=== PATIENT | female | born 1995 | race Caucasian/White ===

== ENCOUNTER 2023-03-01 15:26 | Emergency (ER) | payer OTHER, SELFPAY ==
[2023-03-01 15:28] VITALS: BP 133/65; PULSE 54; RESP 19; TEMP 36.6; O2SAT 99; BMI 37.8
--- NOTE | 2023-03-01 15:30 | ED_ITS ---
HPI - General Adult General Chief complaint: Nausea/Vomiting/Diarrhea Stated complaint: ? food poisoning Time Seen by Provider: 03/01/23 18:57 Source: patient Mode of arrival: ambulatory Limitations: no limitations History of Present Illness HPI narrative: 27-year-old female presents with nausea, vomiting, diarrhea, cramping. Symptoms started yesterday. Patient had a half a burger couple days ago and she felt s lightly unwell. She had the other half the following day which was yesterday and since then she has had nausea, vomiting diarrhea. Everything has been nonbilious, nonbloody. She has had no fevers or chills. She has had multiple episodes of vomiting and diarrhea. She has abdominal cramping which is moderate nature. She has reduced appetite. There is no clear relieving or exacerbating features. She denies any sick contacts. Related Data Previous Rx's Medication Instructions Recorded cefuroxime axetil 250 mg tablet 250 mg PO BID 7 days #14 tabs 07/19/22 phenazopyridine 200 mg tablet 200 mg PO TID 6 doses #6 tabs 07/19/22 (Pyridium) ondansetron 4 mg disintegrating 4 mg PO Q8H PRN nausea and 03/01/23 tablet vomiting #10 tabs Allergies Allergy/AdvReac Type Severity Reaction Status Date / Time No Known Allergies Allergy Verified 03/01/23 15:27 [No Known Allergies*] Review of Systems Review of Systems: CONSTITUTIONAL: Denies weight loss, fever and chills. HEENT: Denies changes in vision and hearing. RESPIRATORY: Denies SOB and cough. CV: Denies palpitations no CP. GI: + abdominal pain, nausea, vomiting and diarrhea. : Denies dysuria and urinary frequency. MSK: Denies myalgia and joint pain. SKIN: Denies rash and pruritus. NEUROLOGICAL: Denies headache and syncope. PSYCHIATRIC: Denies recent changes in mood. Denies anxiety and depression. All other ROS are negative unless in HPI PMFSH Social History Social History Alcohol intake: never Smoked in Last 30 Days: No Use of substances other than those prescribed or required for medical reasons: No Advance Directives: No Advance Directives Information Provided: Yes Patient : No Physical Exam ED Vital Signs: Vital Signs - 24 hr 03/01/23 15:28 03/01/23 19:06 Temperature 98 F Pulse Rate 54 66 Respiratory Rate 19 18 Blood Pressure 133/65 136/64 Pulse Oximetry 99 97 Oxygen Delivery Method Room Air BMI result Body Mass Index 37.8 GEN: Well developed, no acute distress, alert, oriented HEENT: Normocephalic, atraumatic, normal external ears, nose appears normal, no oropharyngeal edema or exudates Eyes: Normal to appearance Neck: Supple, no lymphadenopathy Respiratory: Talks in complete sentences, no respiratory distress, clear to auscultation bilaterally Cardiovascular: Regular rate and rhythm, no murmurs rubs or gallops Abdomen: Soft, nontender, nondistended, no guarding, no rebound Back: No CVA tenderness Extremities: No clubbing cyanosis or edema Neurologic: No focal neurologic deficits, cranial nerves 2-12 intact, strength is 5/5 bilaterally Skin: No rash Course Course Course Narrative: RME- 27 year old female presents for evaluation abdominal pain, nausea, vomiting, diarrhea. She reports her symptoms started after ?a work [employer] republic[employer]. She reports that she had half a hamburger 2 days ago and started to feel upset stomach and nausea. She had the rest the hamburger yesterday and has had persistent nausea vomiting, diarrhea since. Plan for labs, UA, test, stool studies. Reevaluation(s) Reevaluation #1: Patient is feeling much better. She is tolerating oral intake. She will be discharged at this time Time: 20:10 Medications Administered Discontinued Medications Generic Name Dose Route Start Last Admin Trade Name Freq PRN Reason Stop Dose Admin Ondansetron HCl 4 mg 03/01/23 19:03 03/01/23 19:16 Ondansetron Odt 4 Mg Tab.Rapdis TRANSLINGU 03/01/23 19:04 4 mg ONCE ONE Administration Medical Decision Making Medical Decision Making [facility] Narrative: 27-year-old female presents with nausea vomiting, diarrhea and abdominal c ramping. Examination is benign. Differential diagnosis includes gastroenteritis, colitis, IBS, IBD, malabsorption, bacterial overgrowth, lactose intolerance. Plan will be to symptomatically treat the patient. Patient is not have any significant acute abdominal findings. There is no definite indication for imaging of the abdomen. Differential Diagnosis Differential Diagnoses: The differential diagnosis associated with the presentat ion includes (See above) Admission/Observation Consideration of admission/observation: Escalation of care including admission/observation considered Lab Data MDM Lab Attestation statement: I reviewed the patient's lab results. 03/01/23 15:36 03/01/23 15:36 Labs: Lab Results 03/01/23 03/01/23 03/01/23 Range/Units 15:36 15:36 19:09 WBC 20.4 H (4.8-10.8) X10*3/uL RBC 4.61 (4.20-5.50) X10*6/uL Hgb 14.5 (12.0-16.0) g/dl Hct 41.9 (37.0-47.0) % MCV 90.9 (80.0-98.0) fL MCH 31.5 (27.0-33.0) pg MCHC 34.6 (31.0-35.0) g/dl RDW 12.4 (11.0-16.0) % Plt Count 359 (160-400) X10*3/uL MPV 11.0 (9.4-12.3) fL Immature Gran % (Auto) 0.4 (0.0-0.4) % Neut % (Auto) 92.1 H (45-73) % Lymph % (Auto) 4.7 L (20-40) % Falls % (Auto) 2.7 (2-11) % Eos % (Auto) 0.0 (0-4) % Baso % (Auto) 0.1 (0-2) % Lymph # (Auto) 1.0 L (1.2-4.9) X10*3/uL [place] # (Auto) 0.5 (0.1-1.2) X10*3/uL Eos # (Auto) 0.0 (0.0-0.4) X10*3/uL Baso # (Auto) 0.0 (0.0-0.2) X10*3/uL Abs Immat Gran (auto) 0.09 H (0.00-0.03) X10*3/uL Absolute Neuts (auto) 18.8 H (2.0-8.3) x10*3/uL Absolute Nucleated RBC 0.000 (0.0-0.012) X10*3/uL Nucleated RBC % (auto) 0.0 (0.0-0.2) /100WBC Smear Tech's Comments VERIFIED Sodium 140 (135-145) mmol/L Potassium 3.7 (3.3-5.1) mmol/L Chloride 109 H (96-108) mmol/L Carbon Dioxide 19 L (22-29) mmol/L Anion Gap 16 (12-20) BUN 14 (9-16) mg/dL Creatinine 0.81 (0.5-1.4) mg/dL Estim Creat Clear Calc 126.3 Estimated GFR > 60 Random Glucose 151 H (60-115) mg/dL Calcium 10.7 H (8.4-10.2) mg/dL Total Bilirubin 0.8 (0.0-1.0) mg/dL AST 22 (5-31) U/L ALT 31 (0-31) U/L Alkaline Phosphatase 89 (39-117) U/L Total Protein 8.4 H (6.5-8.0) g/dL Albumin 5.2 H (3.5-5.0) g/dL Lipase 10 (8-78) U/L Urine Color Yellow Urine Appearance Turbid Urine pH 6.0 (5.0-9.0) Ur Specific [place] >= 1.030 H (1.005-1.025) Urine Protein 30 (1+) H (Neg-Trace) mg/dL Urine Glucose (UA) Negative (Negative) mg/dL Urine Ketones 15 (Negative) mg/dL Urine Blood Trace H (Negative) Urine Nitrite Negative (Negative) Ur Leukocyte Esterase Trace H (Negative) Urine RBC 6-10 H (0-2) /HPF Urine WBC 0-5 (0-5) /HPF Ur Squamous Epith Cells 3-5 (0-2) /HPF Urine Bacteria None Seen (None Seen) Hyaline Casts 0-2 (0-2) /LPF Urine Test (NEGATIVE) 03/01/23 Range/Units 19:09 WBC (4.8-10.8) X10*3/uL RBC (4.20-5.50) X10*6/uL Hgb (12.0-16.0) g/dl Hct (37.0-47.0) % MCV (80.0-98.0) fL MCH (27.0-33.0) pg MCHC (31.0-35.0) g/dl RDW (11.0-16.0) % Plt Count (160-400) X10*3/uL MPV (9.4-12.3) fL Immature Gran % (Auto) (0.0-0.4) % Neut % (Auto) (45-73) % Lymph % (Auto) (20-40) % Falls % (Auto) (2-11) % Eos % (Auto) (0-4) % Baso % (Auto) (0-2) % Lymph # (Auto) (1.2-4.9) X10*3/uL [place] # (Auto) (0.1-1.2) X10*3/uL Eos # (Auto) (0.0-0.4) X10*3/uL Baso # (Auto) (0.0-0.2) X10*3/uL Abs Immat Gran (auto) (0.00-0.03) X10*3/uL Absolute Neuts (auto) (2.0-8.3) x10*3/uL Absolute Nucleated RBC (0.0-0.012) X10*3/uL Nucleated RBC % (auto) (0.0-0.2) /100WBC Smear Tech's Comments Sodium (135-145) mmol/L Potassium (3.3-5.1) mmol/L Chloride (96-108) mmol/L Carbon Dioxide (22-29) mmol/L Anion Gap (12-20) BUN (9-16) mg/dL Creatinine (0.5-1.4) mg/dL Estim Creat Clear Calc Estimated GFR Random Glucose (60-115) mg/dL Calcium (8.4-10.2) mg/dL Total Bilirubin (0.0-1.0) mg/dL AST (5-31) U/L ALT (0-31) U/L Alkaline Phosphatase (39-117) U/L Total Protein (6.5-8.0) g/dL Albumin (3.5-5.0) g/dL Lipase (8-78) U/L Urine Color Urine Appearance Urine pH (5.0-9.0) Ur Specific [place] (1.005-1.025) Urine Protein (Neg-Trace) mg/dL Urine Glucose (UA) (Negative) mg/dL Urine Ketones (Negative) mg/dL Urine Blood (Negative) Urine Nitrite (Negative) Ur Leukocyte Esterase (Negative) Urine RBC (0-2) /HPF Urine WBC (0-5) /HPF Ur Squamous Epith Cells (0-2) /HPF Urine Bacteria (None Seen) Hyaline Casts (0-2) /LPF Urine Test NEGATIVE (NEGATIVE) Prescription Management I considered prescription management with: Pain Medication Discharge Plan Discharge Clinical Impression: Food poisoning, Gastroenteritis, Leukocytosis Patient Disposition: Home, Self-Care Instructions: Gastroenteritis (DC), Leukocytosis (ED), Food Poisoning (ED) Prescriptions: New ondansetron 4 mg tablet,disintegrating 4 mg PO Q8H PRN (Reason: nausea and vomiting) Qty: 10 0RF No Action cefuroxime axetil 250 mg tablet 250 mg PO BID 7 Days Qty: 14 0RF phenazopyridine [Pyridium] 200 mg tablet 200 mg PO TID 0 Days Qty: 6 0RF Referrals: Physician,None [Primary Care Provider] - (PMD as needed)
[2023-03-01 15:40] LABS: Basophils Percent Auto 0.1 % (0-2); Hematocrit 41.9 % (37.0-47.0); Hemoglobin 14.5 g/dl (12.0-16.0); Imm Gran Abs Auto 0.09 X10*3/uL (0.00-0.03); Imm Gran Pct Auto 0.4 % (0.0-0.4); Lymphocytes Percent Auto 4.7 % (20-40); MANUAL DIFF FLAG SCAN; Mean Corpuscular HGB Conc 34.6 g/dl (31.0-35.0); Mean Corpuscular Hemoglobin 31.5 pg (27.0-33.0); Mean Corpuscular Volume 90.9 fL (80.0-98.0); Monocytes Absolute Auto 0.5 X10*3/uL (0.1-1.2); Monocytes Percent Auto 2.7 % (2-11); Neutrophils Absolute Auto 18.8 x10*3/uL (2.0-8.3); Neutrophils Percent Auto 92.1 % (45-73); Platelet Count 359 X10*3/uL (160-400); Red Blood Count 4.61 X10*6/uL (4.20-5.50); Red Cell Distribution Width 12.4 % (11.0-16.0); SCAN SMEAR FLAG 1; White Blood Count 20.4 X10*3/uL (4.8-10.8)
[2023-03-01 16:00] LABS: Alanine Aminotransferase 31 U/L (0-31); Albumin Level 5.2 g/dL (3.5-5.0); Alkaline Phosphatase 89 U/L (39-117); Anion Gap 16 (12-20); Aspartate Amino Transferase 22 U/L (5-31); Bilirubin Total 0.8 mg/dL (0.0-1.0); Blood Urea Nitrogen 14 mg/dL (9-16); Calcium 10.7 mg/dL (8.4-10.2); Carbon Dioxide 19 mmol/L (22-29); Chloride 109 mmol/L (96-108); Creatinine Clr Calc Pharmacy 126.3; Estimated Glomerular Filt Rate > 60; Glucose Random 151 mg/dL (60-115); Lipase 10 U/L (8-78); Potassium 3.7 mmol/L (3.3-5.1); SLIDE REVIEW VERIFIED; Sodium 140 mmol/L (135-145); Total Protein 8.4 g/dL (6.5-8.0)
--- NOTE | 2023-03-01 19:01 | PC.NURSE ---
Pt is A&Ox3, Pt is reporting N/V/D since yesterday, reports 4/10 abdominal pain. Urine sample has been sent, pt unable to provide stool sample at this time.
[2023-03-01 19:06] VITALS: BP 136/64; PULSE 66; RESP 18; O2SAT 97
[2023-03-01] MEDS: Ondansetron ODT 4 MG TAB.RAPDIS TRANSLINGU (19:16)
[2023-03-01 19:18] LABS: Appearance Urine Turbid; Color Urine Yellow; Glucose Urine UA Negative (Negative); Leukocyte Esterase Urine Trace (Negative); Nitrite Urine Negative (Negative); Specific Gravity - Urine >= 1.030 (1.005-1.025); UMIC TRIGGER UACC YES; Urine Blood Trace (Negative); Urine Ketones 15 mg/dL (Negative); Urine Protein 30 (1+) mg/dL (Neg-Trace)
[2023-03-01 19:19] LABS: UPreg QC Valid YES; Urine Pregnancy NEGATIVE (NEGATIVE)
[2023-03-01 19:23] LABS: Bacteria Urine None Seen (None Seen); Hyaline Casts Urine 0-2 /LPF (0-2); WBC Urine 0-5 /HPF (0-5)
== END 2023-03-01 20:35 | disposition home or self-care (01) ==
PROVIDERS: Physician Assistant; Emergency Provider Emergency Medicine
DX: A05.9 Bacterial foodborne intoxication, unspecified (principal); K52.9 Noninfective gastroenteritis and colitis, unspecified; D72.829 Elevated white blood cell count, unspecified
CPT/HCPCS: 36415; 80053; 81001; 81025; 83690; 85025; 99283; 99284

== ENCOUNTER 2023-03-03 13:45 | Emergency (ER) | payer OTHER, SELFPAY ==
[2023-03-03 13:46] VITALS: BP 133/71; PULSE 66; RESP 16; TEMP 36.6; O2SAT 97; BMI 37.6
--- NOTE | 2023-03-03 14:19 | ED_ITS ---
HPI - General Adult General Chief complaint: Nausea/Vomiting/Diarrhea Stated complaint: nausea Time Seen by Provider: 03/03/23 14:16 Source: patient Mode of arrival: ambulatory Limitations: no limitations History of Present Illness HPI narrative: Patient is 27-year-old female presenting to the emergency department with chief complaint of nausea and vomiting. Patient developed symptoms on 02/28 after eating a hamburger. She was seen and evaluated here on 03/01/2023 and diagnosed with food poisoning. She was discharged home with Zoan and reports that her symptoms had slowly been improving, was able to tolerate some food and fluids yesterday. States today nausea and vomiting seem to be worse. Denies any blood or bile in emesis. She denies any abdominal pain. Denies any urinary symptoms. Denies fevers. Denies back or flank pain. MD complaint: nausea and vomiting Onset (ago): day(s) Exacerbating factors: eating Associated symptoms: denies other symptoms Treatments prior to arrival: other (Zofran) Related Data Previous Rx's Medication Instructions Recorded cefuroxime axetil 250 mg tablet 250 mg PO BID 7 days #14 tabs 07/19/22 phenazopyridine 200 mg tablet 200 mg PO TID 6 doses #6 tabs 07/19/22 (Pyridium) ondansetron 4 mg disintegrating 4 mg PO Q8H PRN nausea and 03/01/23 tablet vomiting #10 tabs metoclopramide HCl 10 mg tablet 10 mg PO Q6H PRN nausea and 03/03/23 vomiting #10 tabs Allergies Allergy/AdvReac Type Severity Reaction Status Date / Time No Known Allergies Allergy Verified 03/03/23 13:49 [No Known Allergies*] Review of Systems Review of Systems: As per HPI. Yes all other systems are reviewed and are negative Constitutional: Constitutional: Reports as per HPI [facility] Social History Social History Alcohol intake: never Advance Directives: No Advance Directives Information Provided: No Physical Exam ED Vital Signs: Vital Signs - 24 hr 03/03/23 13:46 Temperature 97.9 F Pulse Rate 66 Respiratory Rate 16 Blood Pressure 133/71 Pulse Oximetry 97 Oxygen Delivery Method Room Air BMI result Body Mass Index 37.6 Vital signs have been reviewed and appear to be correct. Blood pressure normal. Heart rate normal. Respiratory rate normal. Temperature normal. Oxygen saturation normal. Const General: cooperative, healthy appearing and no acute distress Orientation/consciousness: oriented to person, oriented to place, oriented to time and patient oriented x3 Limitations: no limitations HENMT Head: Yes normocephalic and Yes atraumatic Ears: external ears normal General nose exam: Normal external nose present Face and sinus: Yes face symmetric Mouth: oropharynx normal and moist mucous membranes Throat: Yes uvula midline Eyes Pupils: Equal, round and reactive pupils present Neck Neck: Yes normal visual inspection and Yes supple Resp Effort & Inspection: normal respiratory effort and able to speak in complete sentences Auscultation: clear to auscultation bilaterally Cardio Rate: regular rate Rhythm: regular rhythm Heart sounds: S1 normal heart sound present and S2 normal heart sound present GI Palpation (GI): Soft to palpation and nontender Auscultation: normoactive bowel sounds General: Yes no CVA tenderness Back/Spine/Pelvis Back: no CVA tenderness Skin General skin exam: elasticity normal and turgor normal Neuro General: oriented to person, oriented to place, oriented to time, patient oriented x3, moves all extremities, no focal motor deficits and CN's II-XI intact bilaterally Cranial nerves: Yes Equal, round and reactive pupils present Cognition (Neuro): normal cognition Extrem General: Yes full ROM, Yes no pedal edema and Yes no calf tenderness Psych Mental Status: mental status grossly normal Affect: normal affect Thought process: Normal thought process present Medications Administered Discontinued Medications Generic Name Dose Route Start Last Admin Trade Name Freq PRN Reason Stop Dose Admin Sodium Chloride 1,000 mls @ 999 mls/hr 03/03/23 14:30 03/03/23 16:17 Ns IV 03/03/23 15:30 Infused .Q1H1M ARNOLDO Infusion Metoclopramide HCl 10 mg 03/03/23 14:20 03/03/23 14:42 Metoclopramide Hcl 10 Mg/2 Ml Vial IVPUSH 03/03/23 14:21 10 mg ONCE ONE Administration Medical Decision Making Medical Decision Making [facility] Narrative: Patient is 27-year-old female presenting to the emergency department with chief complaint of nausea and vomiting. On exam patient is awake, A+Ox3, VS WNL, afebrile, normal neurological exam without focal deficits, abdomen soft and nontender, no CVA tenderness. Given reported symptoms and physical exam findings, initial differential includes food poisoning, gastroenteritis, UTI, . Labs notable for improvement in leukocytosis from previous visit, mild elevation of LFTs likely secondary to nausea/vomiting. Plan to administer IV fluids, metoclopramide as patient took Zofran at home without relief, reassess. 15:33 Patient reports improvement in nausea after metoclopramide and fluids. Will complete fluids and likely d/c home. 17:08 Patient reports improved symptoms with fluids and medications in the ED, able to tolerate PO fluids. Feel patient is stable for discharge home at this time. Will prescribed metoclopramide for additional nausea relief. Discussed bland diet progression with patient. Instructed patient to follow-up with primary care provider. Return precautions discussed at bedside. Patient verbalized understanding of and agreement with plan. Differential Diagnosis Differential Diagnoses: The differential diagnosis associated with the presentation includes As per [facility]. Lab Data [facility] Lab Attestation statement: I reviewed the patient's lab results. As per [facility]. 03/03/23 14:25 03/03/23 14:25 Labs: Lab Results 03/03/23 03/03/23 03/03/23 Range/Units 14:25 14:25 16:24 WBC 15.4 H (4.8-10.8) X10*3/uL RBC 4.67 (4.20-5.50) X10*6/uL Hgb 14.4 (12.0-16.0) g/dl Hct 43.0 (37.0-47.0) % MCV 92.1 (80.0-98.0) fL MCH 30.8 (27.0-33.0) pg MCHC 33.5 (31.0-35.0) g/dl RDW 12.3 (11.0-16.0) % Plt Count 360 (160-400) X10*3/uL MPV 11.2 (9.4-12.3) fL Immature Gran % (Auto) 0.5 H (0.0-0.4) % Neut % (Auto) 88.1 H (45-73) % Lymph % (Auto) 7.9 L (20-40) % [place] % (Auto) 3.2 (2-11) % Eos % (Auto) 0.1 (0-4) % Baso % (Auto) 0.2 (0-2) % Lymph # (Auto) 1.2 (1.2-4.9) X10*3/uL [place] # (Auto) 0.5 (0.1-1.2) X10*3/uL Eos # (Auto) 0.0 (0.0-0.4) X10*3/uL Baso # (Auto) 0.0 (0.0-0.2) X10*3/uL Abs Immat Gran (auto) 0.07 H (0.00-0.03) X10*3/uL Absolute Neuts (auto) 13.6 H (2.0-8.3) x10*3/uL Absolute Nucleated RBC 0.000 (0.0-0.012) X10*3/uL Nucleated RBC % (auto) 0.0 (0.0-0.2) /100WBC Sodium 142 (135-145) mmol/L Potassium 3.7 (3.3-5.1) mmol/L Chloride 107 (96-108) mmol/L Carbon Dioxide 22 (22-29) mmol/L Anion Gap 17 (12-20) BUN 15 (9-16) mg/dL Creatinine 0.89 (0.5-1.4) mg/dL Estim Creat Clear Calc 114.8 Estimated GFR > 60 Random Glucose 134 H (60-115) mg/dL Calcium 10.4 H (8.4-10.2) mg/dL Magnesium 2.0 (1.6-2.6) mg/dL Total Bilirubin 0.6 (0.0-1.0) mg/dL AST 41 H (5-31) U/L ALT 64 H (0-31) U/L Alkaline Phosphatase 84 (39-117) U/L Total Protein 8.4 H (6.5-8.0) g/dL Albumin 5.1 H (3.5-5.0) g/dL Lipase 15 (8-78) U/L Beta HCG, Quant < 2 mIU/mL Urine Color Yellow Urine Appearance Clear Urine pH 6.0 (5.0-9.0) Ur Specific [place] 1.015 (1.005-1.025) Urine Protein Negative (Neg-Trace) mg/dL Urine Glucose (UA) Negative (Negative) mg/dL Urine Ketones Negative (Negative) mg/dL Urine Blood Negative (Negative) Urine Nitrite Negative (Negative) Ur Leukocyte Esterase Negative (Negative) Urine RBC 0-2 (0-2) /HPF Urine WBC 0-5 (0-5) /HPF Ur Squamous Epith Cells 0-2 (0-2) /HPF Urine Bacteria None Seen (None Seen) Hyaline Casts 0-2 (0-2) /LPF External Record Review External record reviewed: Inpatient record, Office record and Outpatient record Prescription Management I considered prescription management with: Other (metoclopramide) Discharge Plan Discharge Clinical Impression: Nausea & vomiting Patient Disposition: Home, Self-Care Instructions: Clear Liquid Diet (ED), Diet for Stomach Ulcers and Gastritis (ED), Acute Nausea and Vomiting (ED) Additional Instructions: You were evaluated in the emergency department today for nausea and vomiting, and diarrhea which is most likely due to food poisoning. Your symptoms improved with medication in the ED. You can use Mylanta, which is available over the counter, to help manage your symptoms. You are also being prescribed metoclopramide which improved your nausea in the emergency department. Start progressing with a clear liquid diet, then move on to a bland diet. Please follow up with your primary care physician within two days. Return to the emergency department if you experience shortness of breath, worsening or uncontrolled abdominal pain, chest pain, light headedness, faiting, persistent nausea and vomiting, bloody vomit or stools, black, tarry stools, or any other concerning symptoms. Prescriptions: New metoclopramide HCl 10 mg tablet 10 mg PO Q6H PRN (Reason: nausea and vomiting) Qty: 10 0RF No Action ondansetron 4 mg tablet,disintegrating 4 mg PO Q8H PRN (Reason: nausea and vomiting) Qty: 10 0RF cefuroxime axetil 250 mg tablet 250 mg PO BID 7 Days Qty: 14 0RF phenazopyridine [Pyridium] 200 mg tablet 200 mg PO TID 0 Days Qty: 6 0RF
[2023-03-03] MEDS: 0.9 % Sodium Chloride 1,000 ML 999 ML IV (14:36)
[2023-03-03 14:41] LABS: MANUAL DIFF FLAG NO
[2023-03-03] MEDS: Metoclopramide HCl 10 MG/2 ML VIAL IVPUSH (14:42)
[2023-03-03 14:44] LABS: Basophils Percent Auto 0.2 % (0-2); Eosinophils Percent Auto 0.1 % (0-4); Hemoglobin 14.4 g/dl (12.0-16.0); Imm Gran Abs Auto 0.07 X10*3/uL (0.00-0.03); Imm Gran Pct Auto 0.5 % (0.0-0.4); Lymphocytes Absolute Auto 1.2 X10*3/uL (1.2-4.9); Lymphocytes Percent Auto 7.9 % (20-40); Mean Corpuscular HGB Conc 33.5 g/dl (31.0-35.0); Mean Corpuscular Hemoglobin 30.8 pg (27.0-33.0); Mean Corpuscular Volume 92.1 fL (80.0-98.0); Mean Platelet Volume 11.2 fL (9.4-12.3); Monocytes Absolute Auto 0.5 X10*3/uL (0.1-1.2); Monocytes Percent Auto 3.2 % (2-11); Neutrophils Absolute Auto 13.6 x10*3/uL (2.0-8.3); Neutrophils Percent Auto 88.1 % (45-73); Platelet Count 360 X10*3/uL (160-400); Red Blood Count 4.67 X10*6/uL (4.20-5.50); Red Cell Distribution Width 12.3 % (11.0-16.0); White Blood Count 15.4 X10*3/uL (4.8-10.8)
--- NOTE | 2023-03-03 14:53 | PC.NURSE ---
pt medicated per MAR- Labs obtained 1l NS infusing per order
[2023-03-03 15:05] LABS: Alanine Aminotransferase 64 U/L (0-31); Albumin Level 5.1 g/dL (3.5-5.0); Alkaline Phosphatase 84 U/L (39-117); Anion Gap 17 (12-20); Aspartate Amino Transferase 41 U/L (5-31); Bilirubin Total 0.6 mg/dL (0.0-1.0); Blood Urea Nitrogen 15 mg/dL (9-16); Calcium 10.4 mg/dL (8.4-10.2); Carbon Dioxide 22 mmol/L (22-29); Chloride 107 mmol/L (96-108); Creatinine Clr Calc Pharmacy 114.8; Estimated Glomerular Filt Rate > 60; Glucose Random 134 mg/dL (60-115); Lipase 15 U/L (8-78); Potassium 3.7 mmol/L (3.3-5.1); Sodium 142 mmol/L (135-145); Total Protein 8.4 g/dL (6.5-8.0)
--- NOTE | 2023-03-03 15:37 | PC.NURSE ---
pt verbalizes nausea has improved w/ reglan, provider aware. 500ml NS remaining call [facility] within reach
[2023-03-03 15:47] LABS: HCG Quantitative < 2 mIU/mL
[2023-03-03 16:31] LABS: Appearance Urine Clear; Color Urine Yellow; Glucose Urine UA Negative (Negative); Leukocyte Esterase Urine Negative (Negative); Nitrite Urine Negative (Negative); Specific Gravity - Urine 1.015 (1.005-1.025); Urine Blood Negative (Negative); Urine Ketones Negative (Negative); Urine Protein Negative (Neg-Trace)
[2023-03-03 16:33] LABS: Bacteria Urine None Seen (None Seen); Hyaline Casts Urine 0-2 /LPF (0-2); RBC Urine 0-2 /HPF (0-2); Squamous Epithelial Cell Urine 0-2 /HPF (0-2); WBC Urine 0-5 /HPF (0-5)
== END 2023-03-03 17:22 | disposition home or self-care (01) ==
PROVIDERS: Registered Nurse Emergency; Emergency Provider Student in an Organized Health Care Education/Training Program; PCP Internal Medicine
DX: R11.2 Nausea with vomiting, unspecified (principal)
CPT/HCPCS: 36415; 80053; 81001; 83690; 83735; 84702; 85025; 96361; 96374; 99284; J2765

== ENCOUNTER 2023-03-09 09:16 | Emergency (ER) | payer SELFPAY ==
[2023-03-09 09:24] VITALS: BP 131/78; PULSE 61; RESP 18; TEMP 36.7; O2SAT 99; BMI 37.4
[2023-03-09 10:00] VITALS: BP 148/69; PULSE 60; RESP 18; TEMP 37.1; O2SAT 97
--- NOTE | 2023-03-09 10:13 | ED.DENTAL ---
HPI - Dental/Oral General Chief complaint: Dental/Oral Stated complaint: tooth pain Time Seen by Provider: 03/09/23 09:59 Source: patient and old records reviewed Mode of arrival: ambulatory Limitations: no limitations History of Present Illness HPI Narrative: 27 yo female hx of IBS fractured R lower wisdom tooth 5 days ago now has pain in jaw and pain not responding to tylenol and motrin. no fevers. called 2 dentist cannot get in until sunday Complaint: tooth pain Location: Tooth # (32) Onset (ago): day(s) (5) Duration: worsening Severity: moderate Relieving factors: nothing Exacerbating factors: chewing, cold, heat and swallowing Context: trauma (mechanism) Associated symptoms: gum swelling and pain with swallowing Treatment prior to arrival: oral analgesic Related Data Previous Rx's Medication Instructions Recorded cefuroxime axetil 250 mg tablet 250 mg PO BID 7 days #14 tabs 07/19/22 phenazopyridine 200 mg tablet 200 mg PO TID 6 doses #6 tabs 07/19/22 (Pyridium) ondansetron 4 mg disintegrating 4 mg PO Q8H PRN nausea and 03/01/23 tablet vomiting #10 tabs metoclopramide HCl 10 mg tablet 10 mg PO Q6H PRN nausea and 03/03/23 vomiting #10 tabs amoxicillin 875 mg-potassium 1 tab PO BID #14 tabs 03/09/23 clavulanate 125 mg tablet hydrocodone 5 mg-acetaminophen 325 1 tab PO Q6H PRN pain #8 tabs 03/09/23 mg tablet ibuprofen 600 mg tablet 600 mg PO Q6H PRN pain #30 tabs 03/09/23 Allergies Allergy/AdvReac Type Severity Reaction Status Date / Time No Known Allergies Allergy Verified 03/03/23 13:49 [No Known Allergies*] Review of Systems Review of Systems: Constitutional : No Fever, No Chills ENT/Mouth : No swallowing difficulty, no change in voice, positive dental pain, positive jaw pain, no facial swelling Eyes: No Eye Pain, No Swelling Cardiovascular : No Chest Pain, No SOB Respiratory : No Cough, No Sputum Gastrointestinal : No Nausea, No Vomiting, No Diarrhea Genitourinary : No Dysuria Musculoskeletal : No Myalgias Skin : No rash Neuro : No Weakness, No Numbness, No Headache all other systems reviewed and are negative PMFSH Past Medical History Attestation statement: The following information was validated with the patient. Source: old records reviewed Medical History IBS (irritable bowel syndrome) Social History Social History Alcohol intake: never Patient Tobacco Use Status: Never used Tobacco Physical Exam Vital Signs: Vital Signs: Last Vital Signs Temp 98.8 F 03/09/23 10:00 Pulse 60 03/09/23 10:00 Resp 18 03/09/23 10:00 BP 148/69 H 03/09/23 10:00 Pulse Ox 97 03/09/23 10:00 O2 Del Method Room Air 03/09/23 10:00 BMI result Body Mass Index 37.4 Appearance: Alert. Oriented X3. No acute distress. Eyes: Pupils equal, round and reactive to light. ENT: Pharynx normal. no trismus R lower molar impacted wisdom tooth gum is indurated but no fluctuance no mass felt no submandibular or sublingual swelling tolerating secretions and normal voice Neck: Normal inspection. Neck supple. no swelling CVS: Pulses normal. Respiratory: No respiratory distress. Abdomen: Soft and non-tender. Skin: Skin warm and dry. Normal skin color. Normal skin turgor. Extremities: No lower extremity edema. Neuro: Oriented X 3. No motor deficit. No sensory deficit. Medical Decision Making Medical Decision Making MDM Narrative: 27 yo female with hx of IBS (diarrhea resovled from previous visit) here with R lower molar pain from fractured impacted wisdom tooth clinically no trismus no submandibular or sublingual swelling no fevers no neck swelling normal ROM no resp issues normal voice no concern for deeper space infection has dentist follow up next week will start on augmentin and pain medications. stable for [place] home Differential Diagnosis Differential Diagnoses: The differential diagnosis associated with the presentation includes impacted tooth, toothache, infection External Record Review External record reviewed: Inpatient record Prescription Management I considered prescription management with: Pain Medication and Antibiotic pain medications and augmentin Discharge Plan Discharge Clinical Impression: Toothache Fracture of tooth Qualifiers: Encounter type: initial encounter Fracture type: open Qualified Code(s): S02.5XXB - Fracture of tooth (traumatic), initial encounter for open fracture Patient Disposition: Home, Self-Care Instructions: Acute Dental Trauma (ED), Toothache (ED) Additional Instructions: return for increased pain, swelling, inability to swallow, swelling that goes into the face or neck take a probiotic while on antibiotics. more than 8 loose stools a day while on antibiotic is not normal seek medical care. Prescriptions: New amoxicillin-pot clavulanate 875-125 mg tablet 1 tab PO BID Qty: 14 0RF ibuprofen 600 mg tablet 600 mg PO Q6H PRN (Reason: pain) Qty: 30 0RF hydrocodone-acetaminophen 5-325 mg tablet 1 tab PO Q6H PRN (Reason: pain) Qty: 8 0RF Rx Instructions: partial fill okay; Partial Fill upon patient request. No Action ondansetron 4 mg tablet,disintegrating 4 mg PO Q8H PRN (Reason: nausea and vomiting) Qty: 10 0RF metoclopramide HCl 10 mg tablet 10 mg PO Q6H PRN (Reason: nausea and vomiting) Qty: 10 0RF cefuroxime axetil 250 mg tablet 250 mg PO BID 7 Days Qty: 14 0RF phenazopyridine [Pyridium] 200 mg tablet 200 mg PO TID 0 Days Qty: 6 0RF
== END 2023-03-09 10:32 | disposition home or self-care (01) ==
PROVIDERS: Emergency Provider Emergency Medicine
DX: K08.89 Other specified disorders of teeth and supporting structures (principal); Z79.899 Other long term (current) drug therapy
CPT/HCPCS: 99283